=== PATIENT | female | born 1945 | race African-American/Black ===

== ENCOUNTER 2017-03-25 11:18 | Inpatient (IN) | payer OTHER ==
[~2017-03-25] VITALS: Ht 160 cm; Wt 106.1 kg
--- NOTE | ~2017-03-25 | HC ---
[facility] [place] [address] CONSULTATION Name: MENDEZDARWIN Daryl Room #: 436-P [facility] IN ..#: [id number] Admission: 03/25/17 Attend Phys: Tami Martinez MD Discharge: 03/28/17 Date of : 47 Report #: [id number] THIS REPORT FOR: //name// CC: HELGA physician/PCP Tami Martinez DATE OF SERVICE: 03/27/2017 REASON FOR CONSULTATION: I was asked to evaluate the patient concerning pyelonephritis. HISTORY OF PRESENT ILLNESS: The patient is a 71-year-old who presented on 03/25/2017 with fever, chills, malaise, generalized weakness. She had temperature up to 104 degrees. Blood cultures and urine cultures revealed E. coli. Urinalysis was fairly unremarkable. The patient did have left flank pain. She had urinary frequency and dark colored urine. She in addition had some associated nausea. She has chronically loose stools since she is on metformin. She has ventral hernias that have been repaired in the past. No worsening of these symptoms were noted. PAST MEDICAL HISTORY: Significant for hypertension, diabetes, asthma, ventral herniorrhaphy, hyperlipidemia. ALLERGIES: PENICILLIN WITH ITCHING. MEDICATIONS: As noted on MAR notes ciprofloxacin. FAMILY HISTORY: Asthma. SOCIAL HISTORY: Nonsmoker, no significant alcohol intake, currently lives alone, but does have family available to assist. REVIEW OF SYSTEMS: As noted above. PHYSICAL EXAMINATION: VITAL SIGNS: She is afebrile, hemodynamically stable now, her appetite is good, sitting outside the bed, obese. SKIN: Unremarkable. LYMPH: Unremarkable. EYES: Unremarkable. MOUTH: Unremarkable. NECK: Supple. LUNGS: Clear. HEART: Regular, without murmur. ABDOMEN: Soft and nontender. She did have a small ventral hernia with bowel that was able to be reduced. No CVA tenderness. [facility] [address] [place] [address] CONSULTATION Name: DARWIN MENDEZ Room #: 436-P [facility]#: [id number] Admission: 03/25/17 Attend Phys: Tami Martinez MD Discharge: 03/28/17 Date of : 47 Report #: [id number] EXTREMITIES: Unremarkable. LABORATORY STUDIES: Sodium 143, potassium 3.7, bicarbonate at 29, creatinine 0.7, hemoglobin 10.6, white count 6.8, 49% segs, 0% bands and 31% lymphocytes. Platelet count 99,000. Urinalysis 0-5 wbc's, 0-2 rbc's, moderate bacteria. Blood and urine cultures showing pansensitive E. coli. Chest x-ray: Cardiomegaly, otherwise unremarkable. CT abdomen and pelvis. She had a ventral hernia. Left adnexal cyst. No hydronephrosis or stones. IMPRESSION: A 71-year-old with Escherichia coli bacteremia. I suspect urinary tract source. No evidence of obstruction. She had an unremarkable urinalysis, but this does not fit the clinical picture and I am concerned about possible lab error. No evidence of intestinal disease that is active. No evidence of biliary tract infection. I would recommend that she continue with Bactrim to complete a 14-day course of therapy. We would repeat urinalysis and urine culture following completion of her treatment. She also has thrombocytopenia that I would monitor after her infection has completed treatment with a repeat CBC. <ELECTRONICALLY SIGNED> By: Nimesh Villar MD 03/28/17 [id number] [id number] Nimesh Villar MD /nt
[2017-03-25 11:41] LABS: ABSOLUTE NEUTROPHILS 3.2 thou/uL (1.4-8.2); BASOPHILS 0.4 % (0.0-2.0); EOSINOPHILS 2.3 % (0.0-3.0); HEMATOCRIT 37.2 % (37.0-47.0); HEMOGLOBIN 12.3 gm/dL (12.0-15.0); LYMPHOCYTES 13.8 % (24.0-44.0); MCH 28.6 pg (26.0-34.0); MCHC 33.2 g/dL (28.0-37.0); MCV 86.4 fL (80.0-100.0); MONOCYTES 1.2 % (1.0-8.0); POLYS 82.3 % (36.0-66.0); RBC 4.31 mil/uL (4.20-5.00); RDW 14.1 % (10.5-14.5); WBC 3.8 thou/uL (4.0-11.0)
[2017-03-25 11:47] LABS: MANUAL DIFF NO
[2017-03-25 11:51] LABS: CALCIUM 9.2 mg/dL (8.5-10.1); CREATININE 0.9 mg/dL (0.6-1.0); POTASSIUM 4.4 mmol/L (3.5-5.1)
[2017-03-25 11:59] LABS: ABG SAMPLE TYPE ARTERIAL; BE(vivo) 0.7 mmol/L (-2 to +3); HCO3 24.3 mmol/L (22.0-26.0); LACTATE 2.29 mmol/L (0.5-2.0); O2(CT) 16.9 mL/dL (15.0-23.0); O2Hb 95.1 % (92.0-98.0); PCO2 35.3 mmHg (35.0-45.0); PO2 85.1 mmHg (80.0-100.0); STICK SITE R.RADIAL; pH 7.455 (7.360-7.450); sO2 96.9 % (92.0-98.0); tCO2 25.3 mmol/L (24.0-30.0)
[2017-03-25 12:05] LABS: PLATELET COUNT 98 thou/uL (150-400)
[2017-03-25 12:15] LABS: URINE BILIRUBIN NEGATIVE (Negative); URINE BLOOD 1+ (Negative); URINE COLOR YELLOW; URINE GLUCOSE-RANDOM* NEGATIVE (Negative); URINE KETONES NEGATIVE (Negative); URINE LEUKOCYTES-REFLEX NEGATIVE (Negative); URINE PROTEIN (DIPSTICK) NEGATIVE (Negative); URINE SPECIFIC GRAVITY 1.015 (1.003-1.035); URINE UROBILINOGEN 0.2 E.U./dl (0.2-1.0)
[2017-03-25 12:38] LABS: CASTS None Seen /LPF (None Seen); CRYSTALS None Seen /LPF (None Seen); SQUAMOUS 0-3 Few /LPF (0-3); URINE RBC 0-2 Rare /HPF (0-2); URINE WBC-REFLEX 0-5 Rare /HPF (0-5)
[2017-03-25 15:36] VITALS: BP 146/74
[2017-03-25 16:00] VITALS: BP 141/52
[2017-03-25 16:15] VITALS: BP 141/52
[2017-03-25] MEDS ORDERED: LOPRESSOR50 PO (16:33)
[2017-03-25] MEDS ORDERED: AMLODIPINE BESY10 MG PO (16:34)
[2017-03-25] MEDS ORDERED: ASPIR 8181 M1 PO (16:35)
[2017-03-25] MEDS ORDERED: LASIX 40 MG TAB40 M2 PO (16:36)
[2017-03-25] MEDS ORDERED: SM COMPLETE SE1 EACH PO (16:36)
[2017-03-25] MEDS ORDERED: METFORMIN HCL500 MG PO (16:37)
[2017-03-25] MEDS ORDERED: B12INJ IM (16:38)
[2017-03-25 18:56] VITALS: BP 119/54
[2017-03-25 22:33] VITALS: BP 119/54
[2017-03-26 03:38] VITALS: BP 137/61
[2017-03-26 05:19] LABS: HEMATOCRIT 30.5 % (37.0-47.0); HEMOGLOBIN 10.6 gm/dL (12.0-15.0); MCH 29.7 pg (26.0-34.0); MCHC 34.6 g/dL (28.0-37.0); MCV 85.7 fL (80.0-100.0); PLATELET COUNT 86 thou/uL (150-400); RBC 3.56 mil/uL (4.20-5.00); RDW 14.3 % (10.5-14.5); WBC 10.6 thou/uL (4.0-11.0)
[2017-03-26 05:22] LABS: MANUAL DIFF YES
[2017-03-26 05:28] LABS: CALCIUM 8.3 mg/dL (8.5-10.1); CREATININE 0.6 mg/dL (0.6-1.0); POTASSIUM 3.5 mmol/L (3.5-5.1)
[2017-03-26] MEDS ORDERED: SYMBICORT160 MCG/4. INH (08:10)
[2017-03-26] MEDS ORDERED: ATROVENT HFA14 GM INH (08:12)
[2017-03-26 08:35] VITALS: BP 132/63
[2017-03-26 09:18] LABS: ABSOLUTE NEUTROPHILS 8.3 thou/uL (1.4-8.2); TOTAL CELL COUNT 100
[2017-03-26 09:19] LABS: LARGE PLATELETS FEW
[2017-03-26 16:34] VITALS: BP 130/57
[2017-03-26 19:21] VITALS: BP 140/58
[2017-03-27 05:27] VITALS: BP 125/57
[2017-03-27 06:02] LABS: HEMATOCRIT 31.1 % (37.0-47.0); HEMOGLOBIN 10.6 gm/dL (12.0-15.0); MCH 29.1 pg (26.0-34.0); MCHC 34.2 g/dL (28.0-37.0); MCV 85.3 fL (80.0-100.0); PLATELET COUNT 99 thou/uL (150-400); RBC 3.65 mil/uL (4.20-5.00); RDW 14.1 % (10.5-14.5); WBC 6.8 thou/uL (4.0-11.0)
[2017-03-27 06:03] LABS: MANUAL DIFF YES
[2017-03-27 06:10] LABS: CALCIUM 8.7 mg/dL (8.5-10.1); CREATININE 0.7 mg/dL (0.6-1.0); POTASSIUM 3.7 mmol/L (3.5-5.1)
[2017-03-27 07:59] LABS: ABSOLUTE NEUTROPHILS 3.3 thou/uL (1.4-8.2); TOTAL CELL COUNT 100
[2017-03-27 08:00] VITALS: BP 152/74
[2017-03-27 08:00] LABS: ANISOCYTOSIS SLIGHT
[2017-03-27 16:00] VITALS: BP 125/61
[2017-03-27 20:13] VITALS: BP 129/56
[2017-03-28 05:40] VITALS: BP 139/70
[2017-03-28 06:08] LABS: GLYCOHEMOGLOBIN (HGB A1C) 5.7 % (4.8-5.6)
[2017-03-28 07:04] LABS: HEMATOCRIT 31.7 % (37.0-47.0); HEMOGLOBIN 10.9 gm/dL (12.0-15.0); MCH 29.1 pg (26.0-34.0); MCHC 34.5 g/dL (28.0-37.0); MCV 84.2 fL (80.0-100.0); RBC 3.76 mil/uL (4.20-5.00); WBC 5.4 thou/uL (4.0-11.0)
[2017-03-28 07:13] LABS: CALCIUM 9.1 mg/dL (8.5-10.1); CREATININE 0.7 mg/dL (0.6-1.0); POTASSIUM 3.9 mmol/L (3.5-5.1)
[2017-03-28 07:18] VITALS: BP 138/66
[2017-03-28] MEDS ORDERED: BACTRIM DS TAB1 EACH PO (10:01)
[2017-03-28 12:13] VITALS: BP 138/66
== END 2017-03-28 12:28 | disposition home or self-care (01) | DRG 871 ==
LOC: ER 11:18 → EROBS 14:22 → 4S 14:22 → EROBS 15:40 → 4S 15:53
PROVIDERS: Emergency Medicine; Hospitalist; Internal Medicine Endocrinology, Diabetes & Metabolism
DX: A41.51 Sepsis due to Escherichia coli [E. coli] (principal); G93.41 Metabolic encephalopathy; N12 Tubulo-interstitial nephritis, not specified as acute or chronic; A41.9 Sepsis, unspecified organism; D69.6 Thrombocytopenia, unspecified; E11.9 Type 2 diabetes mellitus without complications; I10 Essential (primary) hypertension; J44.9 Chronic obstructive pulmonary disease, unspecified; D64.9 Anemia, unspecified; B96.20 Unspecified Escherichia coli [E. coli] as the cause of diseases classified elsewhere; E78.5 Hyperlipidemia, unspecified; Z82.5 Family history of asthma and other chronic lower respiratory diseases; Z88.0 Allergy status to penicillin
CPT/HCPCS: 10100

== ENCOUNTER 2018-01-11 10:18 | Inpatient (IN) | payer OTHER ==
[~2018-01-11] VITALS: Ht 160 cm; Wt 100.2 kg
[~2018-01-11 10:18] MED LIST: AMLODIPINE BESY10 MG PO; ASPIR 8181 M1 PO; ATROVENT HFA14 GM INH; B12INJ IM; BACTRIM DS TAB1 EACH PO; LASIX 40 MG TAB40 M2 PO; LOPRESSOR50 PO; METFORMIN HCL500 MG PO; SM COMPLETE SE1 EACH PO; SYMBICORT160 MCG/4. INH
[2018-01-11 10:25] VITALS: BP 156/68
[2018-01-11 10:53] LABS: HEMATOCRIT 27.2 % (37.0-47.0); MCH 25.6 pg (26.0-34.0); MCHC 33.1 g/dL (28.0-37.0); MCV 77.4 fL (80.0-100.0); PLATELET COUNT 232 thou/uL (150-400); RBC 3.51 mil/uL (4.20-5.00); RDW 15.8 % (10.5-14.5); WBC 7.4 thou/uL (4.0-11.0)
[2018-01-11 11:06] LABS: ANION GAP 11 mmol/L (7-16); BUN 8 mg/dL (7-18); CALCIUM 9.1 mg/dL (8.5-10.1); CHLORIDE 102 mmol/L (98-107); CO2 29 mmol/L (21-32); CREATININE 0.7 mg/dL (0.6-1.0); GLUCOSE 126 mg/dL (74-106); POTASSIUM 3.5 mmol/L (3.5-5.1); SODIUM 142 mmol/L (136-145)
[2018-01-11 11:14] LABS: ALBUMIN 2.7 g/dL (3.4-5.0); LIPASE 53 U/L (73-393); SGOT 25 U/L (15-37); SGPT 14 U/L (30-65); TOTAL BILIRUBIN 0.4 mg/dL (<0.1-1.0); TOTAL PROTEIN 8.8 g/dL (6.4-8.2); TROPONIN-I < 0.04 ng/mL (<0.06)
[2018-01-11 11:44] LABS: ABSOLUTE NEUTROPHILS 5.1 thou/uL (1.4-8.2); PLATELET ESTIMATE NORMAL
[2018-01-11 12:19] LABS: URINE BILIRUBIN NEGATIVE (Negative); URINE BLOOD NEGATIVE (Negative); URINE CLARITY CLEAR; URINE COLOR YELLOW; URINE GLUCOSE-RANDOM* NEGATIVE (Negative); URINE KETONES NEGATIVE (Negative); URINE LEUKOCYTES NEGATIVE (Negative); URINE NITRITE NEGATIVE (Negative); URINE PROTEIN (DIPSTICK) NEGATIVE (Negative); URINE SPECIFIC GRAVITY <= 1.005 (1.005-1.035); URINE UROBILINOGEN 0.2 E.U./dl (0.2-1.0)
[2018-01-11 14:17] VITALS: BP 137/76
[2018-01-11 18:20] VITALS: BP 151/70
[2018-01-11 18:37] VITALS: BP 151/70
[2018-01-11 20:00] VITALS: BP 139/61
[2018-01-11 23:58] VITALS: BP 144/66
[2018-01-12 04:06] LABS: HEMATOCRIT 25.4 % (37.0-47.0); HEMOGLOBIN 8.4 gm/dL (12.0-15.0); MCH 25.7 pg (26.0-34.0); MCHC 33.1 g/dL (28.0-37.0); MCV 77.5 fL (80.0-100.0); RBC 3.27 mil/uL (4.20-5.00); RDW 15.4 % (10.5-14.5); WBC 7.8 thou/uL (4.0-11.0)
[2018-01-12 04:37] VITALS: BP 155/75
[2018-01-12 17:05] VITALS: BP 133/53
== END 2018-01-12 18:40 | disposition short-term general hospital (02) | DRG 444 ==
LOC: ER 10:18 → EROBS 13:24 → 4E 13:24 → EROBS 14:53 → 4S 18:30 → EROBS 18:36 → 4E 19:12
PROVIDERS: Hospitalist; Physician Assistant
DX: K81.0 Acute cholecystitis (principal); E43 Unspecified severe protein-calorie malnutrition; J45.909 Unspecified asthma, uncomplicated; R16.0 Hepatomegaly, not elsewhere classified; D64.9 Anemia, unspecified; I50.9 Heart failure, unspecified; M19.90 Unspecified osteoarthritis, unspecified site; K82.9 Disease of gallbladder, unspecified; E78.00 Pure hypercholesterolemia, unspecified; I11.0 Hypertensive heart disease with heart failure; Z87.891 Personal history of nicotine dependence; Z85.3 Personal history of malignant neoplasm of breast; Z90.12 Acquired absence of left breast and nipple; Z79.899 Other long term (current) drug therapy; Z88.0 Allergy status to penicillin; Z82.5 Family history of asthma and other chronic lower respiratory diseases
CPT/HCPCS: 10084